=== PATIENT | male | born 1960 | race Caucasian/White ===

== ENCOUNTER 2018-12-28 08:50 | Emergency (ER) | payer OTHER ==
[~2018-12-28] VITALS: Ht 170.2 cm; Wt 102.1 kg
[~2018-12-28 08:50] MED LIST: CRESTOR5 MG PO; MULT1TAB52 PO; RANI-376 PO
[2018-12-28 09:20] VITALS: BP 160/91
[2018-12-28] MEDS ORDERED: IV NORMAL SALINE 1000ML BAG 1,000 ML IV SCH (09:31)
[2018-12-28 09:45] LABS: BILIRUBIN,URINE NEGATIVE (NEG); CLARITY,URINE CLEAR; COLOR,URINE YELLOW; NITRITE,URINE NEGATIVE (NEG); PH,URINE 6.5; PROTEIN,URINE NEGATIVE (NEG-TRACE)
[2018-12-28] MEDS ORDERED: KETOROLAC 30 MG/ML VIAL. IV ONE (09:45)
[2018-12-28 09:48] LABS: SQUAMOUS EPITHELIAL CELL,UR FEW /LPF
[2018-12-28 09:49] LABS: BACTERIA,URINE 0 /HPF (0-FEW); WBC,URINE OCC /HPF (0-4)
--- NOTE | 2018-12-28 09:52 | PHYS DOC ---
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 He states that on Thursday began experiencing some right-sided testicular pain, with radiation towards his right flank, which increased in intensity yesterday but has decreased in intensity today. But the pain is persisting so he presented to the emergency department. He denies any other associated symptoms, no nausea, vomiting, dysuria, hematuria, urinary frequency, or penile discharge. He has not had any abdominal pain. He has had 1 episode of prior kidney stones, and many many years ago, but states that this does not feel quite the same way. There are no alleviating or exacerbating factors to his symptoms. Review of Systems Review of Systems Constitutional: Denies fever or chills [] Eyes: Denies change in visual acuity, redness, or eye pain [] HENT: Denies nasal congestion or sore throat [] Respiratory: Denies cough or shortness of breath [] Cardiovascular: The patient denies any shortness of breath, chest pain, palpitations, or orthopnea [] GI: Denies abdominal pain, nausea, vomiting, bloody stools or diarrhea [] : Denies dysuria or hematuria [] Musculoskeletal: Denies back pain or joint pain, other than as noted in the history of present illness [] Integument: Denies rash or skin lesions [] Neurologic: Denies headache, focal weakness or sensory changes [] Endocrine: Denies polyuria or polydipsia [] All other systems were reviewed and found to be within normal limits, except as documented in this note. Current Medications Current Medications Current Medications Medications (Trade) Dose Ordered Sig/Quinton Start Time Stop Time Status Last Admin Dose Admin Ketorolac Tromethamine (Toradol 30mg Vial) 30 mg 1X ONCE 12/28/18 09:45 12/28/18 09:46 DC 12/28/18 10:07 30 MG Sodium Chloride 1,000 ml @ 1,000 mls/hr Q1H 12/28/18 09:31 12/28/18 10:30 DC 12/28/18 09:59 1,000 MLS/HR Allergies Allergies Allergies Coded Allergies Type Severity Reaction Last Updated Verified No Known Drug Allergies 10/30/17 No Physical Exam Physical Exam PHYSICAL EXAM: CONSTITUTIONAL: Well developed, well nourished HEAD: normocephalic, atraumatic EENT: PERRL, EOMI. Conjunctivae normal color, sclerae non-icteric; moist mucous membranes. NECK: Supple, non-tender; no meningismus. LUNGS: Lungs CTA, breathing even and unlabored. Normal air movement. HEART: Regular rate and rhythm, no murmur CHEST: No deformity; non-tender ABDOMEN: The abdomen is soft, there is mild tenderness to palpation to the right upper and mid abdomen, the remainder the abdomen is and non-tender, no masses or bruits. EXTREM: Normal ROM; no deformity, no calf tenderness. Normal pulses palpable in all extremities. There is no pedal edema. SKIN: No rash; no diaphoresis NEURO: Alert; normal speech and cognition; CN's grossly intact; strength grossly intact without focal deficit. BACK: There is mild right-sided CVA TTP. GENITOURINARY: Normal external genitalia. There is questionable mild tenderness to palpation of the right testicle, which feels normal in size and contour, there are no inguinal hernias, no other genital lesions or abnormalities are noted. Current Patient Data Vital Signs Vital Signs Date Time Temp Pulse Resp B/P (MAP) Pulse Ox O2 Delivery O2 Flow Rate FiO2 12/28/18 09:20 98.1 74 16 160/91 (114) 98 Room Air 98.1 Lab Values Laboratory Tests Test 12/28/18 09:20 12/28/18 09:57 Urine Collection Type Unknown Urine Color Yellow Urine Clarity Clear Urine pH 6.5 Urine Specific [place] 1.015 Urine Protein Negative mg/dL (NEG-TRACE) Urine Glucose (UA) Negative mg/dL (NEG) Urine Ketones (Stick) Negative mg/dL (NEG) Urine Blood Small (NEG) Urine Nitrite Negative (NEG) Urine Bilirubin Negative (NEG) Urine Urobilinogen Dipstick 1.0 mg/dL (0.2 mg/dL) Urine Leukocyte Esterase Negative (NEG) Urine RBC 11-20 /HPF (0-2) Urine WBC Occ /HPF (0-4) Urine Squamous Epithelial Cells Few /LPF Urine Bacteria 0 /HPF (0-FEW) Urine Mucus Mod /LPF White Blood Count 6.1 x10^3/uL (4.0-11.0) Red Blood Count 5.27 x10^6/uL (4.30-5.70) Hemoglobin 16.8 g/dL (13.0-17.5) Hematocrit 47.8 % (39.0-53.0) Mean Corpuscular Volume 91 fL (79-100) Mean Corpuscular Hemoglobin 32 pg (25-35) Mean Corpuscular Hemoglobin Concent 35 g/dL (31-37) Red Cell Distribution Width 13.6 % (11.5-14.5) Platelet Count 230 x10^3/uL (140-400) Neutrophils (%) (Auto) 60 % (31-73) Lymphocytes (%) (Auto) 29 % (24-48) Monocytes (%) (Auto) 7 % (0-9) Eosinophils (%) (Auto) 3 % (0-3) Basophils (%) (Auto) 1 % (0-3) Neutrophils # (Auto) 3.6 x10^3/uL (1.8-7.7) Lymphocytes # (Auto) 1.8 x10^3/uL (1.0-4.8) Monocytes # (Auto) 0.4 x10^3/uL (0.0-1.1) Eosinophils # (Auto) 0.2 x10^3/uL (0.0-0.7) Basophils # (Auto) 0.1 x10^3/uL (0.0-0.2) Sodium Level 143 mmol/L (136-145) Potassium Level 4.0 mmol/L (3.5-5.1) Chloride Level 105 mmol/L (98-107) Carbon Dioxide Level 30 mmol/L (21-32) Anion Gap 8 (6-14) Blood Urea Nitrogen 20 mg/dL (8-26) Creatinine 0.8 mg/dL (0.7-1.3) Estimated GFR (Cockcroft-Gault) 98.9 BUN/Creatinine Ratio 25 (6-20) H Glucose Level 115 mg/dL (70-99) H Calcium Level 9.2 mg/dL (8.5-10.1) Total Bilirubin 0.6 mg/dL (0.2-1.0) Aspartate Amino Transferase (AST) 17 U/L (15-37) Alanine Aminotransferase (ALT) 48 U/L (16-63) Alkaline Phosphatase 111 U/L (46-116) Total Protein 7.4 g/dL (6.4-8.2) Albumin 3.9 g/dL (3.4-5.0) Albumin/Globulin Ratio 1.1 (1.0-1.7) Lipase 76 U/L (73-393) Laboratory Tests 12/28/18 09:57 Laboratory Tests 12/28/18 09:57 EKG EKG [] Radiology/Procedures Radiology/Procedures [PROCEDURE: TESTICULAR/SCROTUM Examination: Ultrasound testis HISTORY: History of right testicular pain COMPARISON: None available FINDINGS: The right testis measures 5.1 x 3.1 x 2.5 cm. The left testis measures 5.1 x 2.3 x 2.7 cm. Prominent tortuous appearing vasculature identified on the right likely varicocele. Small bilateral hydroceles identified. IMPRESSION: 1. Right varicocele. 2. Mild bilateral hydrocele. ] PROCEDURE: CT ABDOMEN PELVIS WO CONTRAST Examination: CT of the abdomen pelvis without contrast HISTORY: History of right flank pain COMPARISON: 10/30/2017 TECHNIQUE: Axial CT images of the abdomen pelvis were performed without contrast. Coronal and sagittal reformats are performed Exposure: One or more of the following individualized dose reduction techniques were utilized for this examination: 1. Automated exposure control 2. Adjustment of the mA and/or kV according to patient size 3. Use of iterative reconstruction technique FINDINGS: Scattered calcified granulomas identified in the bibasilar lungs. No evidence of free air identified in the abdomen. The evaluation of the solid organs is limited due to lack of IV contrast. The evaluation of bowel is limited due to lack of oral contrast. The visualized noncontrasted liver spleen, adrenals grossly appears unremarkable. The gallbladder is mildly distended. The stomach is mildly distended. The visualized pancreas grossly appears unremarkable. The stomach is mildly distended. The small bowel is nondilated. Feces and gas noted in the colon. Punctate intrarenal collecting system calculi identified in the bilateral kidneys with the largest measuring 2 mm in the left. Mild right-sided hydronephrosis there is a questionable punctate 2 mm calculus identified in the distal right ureter, best visualized on series 2 image #162. Urinary bladder is mildly distended. There is a 2.7 x 2.7 cm round density measuring 29 Hounsfield units identified in the anterior aspect of the left kidney. There is a exophytic cystic structure identified in the left kidney measuring 1.7 cm similar to prior exam could be a left renal cyst or cystic lesion Moderate degenerative changes lumbar spine IMPRESSION: 1. Mild right-sided hydronephrosis and hydroureter identified with a questionable punctate 2 mm calculus in the distal right ureter. 2. A 2.7 x 2.7 cm round density measuring 29 Hounsfield units identified in the anterior aspect of the left kidney. There is a exophytic cystic structure identified in the left kidney measuring 1.7 cm similar to prior exam could be a left renal cyst or cystic lesion. Recommend follow-up nonemergent ultrasound. Course & Med Decision Making Course & Med Decision Making Pertinent Labs and Imaging studies reviewed. (See chart for details) [] Pt condition remains stable. Pain better at this time. Discussed test results, including incidental L renal findings, need for close urology f/u, straining urine, and return precautions. Dragon Disclaimer Dragon Disclaimer This electronic medical record was generated, in whole or in part, using a voice recognition dictation system. Departure Departure Impression: Primary Impression: Kidney stone Disposition: HOME, SELF-CARE Condition: STABLE Referrals: FLAQUITO PARSON DO (PCP) AARON PALMER MD Patient Instructions: Kidney Stones Additional Instructions: Ibuprofen 400-600 mg every 6 hours as needed for pain. Use the prescribed pain medication as needed for pain not controlled by ibuprofen.The prescribed medication may cause drowsiness. Use caution while taking. Strain your urine. If you find a kidney stone, bring it to your urology follow- up appointment, as this may help the urologist to determine what is causing the stone what you might be able to do to prevent this from happening in the future. The CT scan done today did show a lesion on your left kidney, which will warrant further evaluation, with an outpatient ultrasound, to ensure that this is not a serious or cancerous etiology. Urology follow-up will help arrange outpatient imaging. Scripts Tamsulosin Hcl (FLOMAX) 0.4 Mg Cap.er.24h 1 CAP PO DAILY, #30 CAP 0 Refills Prov: LAURA ANDERSON MD 12/28/18 LAURA ANDERSON MD Dec 28, 2018 09:52
--- NOTE | 2018-12-28 10:16 | RAD ---
Examination: Ultrasound testis HISTORY: History of right testicular pain COMPARISON: None available FINDINGS: The right testis measures 5.1 x 3.1 x 2.5 cm. The left testis measures 5.1 x 2.3 x 2.7 cm. Prominent tortuous appearing vasculature identified on the right likely varicocele. Small bilateral hydroceles identified. IMPRESSION: 1. Right varicocele. 2. Mild bilateral hydrocele. Electronically signed by: Trevin Granado MD (12/28/2018 10:13 AM) [id number]
[2018-12-28 10:19] LABS: CALCIUM 9.2 mg/dL (8.5-10.1); CREATININE 0.8 mg/dL (0.7-1.3); GFR 98.9
[2018-12-28 10:23] LABS: ALBUMIN 3.9 g/dL (3.4-5.0); ALBUMIN/GLOBULIN RATIO 1.1 (1.0-1.7); TOTAL BILIRUBIN 0.6 mg/dL (0.2-1.0); TOTAL PROTEIN 7.4 g/dL (6.4-8.2)
[2018-12-28 10:26] LABS: BASO # 0.1 x10^3/uL (0.0-0.2); BASO % 1 % (0-3); EOS # 0.2 x10^3/uL (0.0-0.7); EOS % 3 % (0-3); HEMATOCRIT 47.8 % (39.0-53.0); HEMOGLOBIN 16.8 g/dL (13.0-17.5); LYMPH # 1.8 x10^3/uL (1.0-4.8); LYMPH % 29 % (24-48); MEAN CORPUSCULAR HEMOGLOBIN 32 pg (25-35); MEAN CORPUSCULAR HGB CONC 35 g/dL (31-37); MEAN CORPUSCULAR VOLUME 91 fL (79-100); MONO # 0.4 x10^3/uL (0.0-1.1); MONO % 7 % (0-9); NEUT # 3.6 x10^3/uL (1.8-7.7); NEUT % 60 % (31-73); PLATELET COUNT 230 x10^3/uL (140-400); RED BLOOD COUNT 5.27 x10^6/uL (4.30-5.70); RED CELL DISTRIBUTION WIDTH 13.6 % (11.5-14.5); WHITE BLOOD COUNT 6.1 x10^3/uL (4.0-11.0)
--- NOTE | 2018-12-28 10:31 | RAD ---
Examination: CT of the abdomen pelvis without contrast HISTORY: History of right flank pain COMPARISON: 10/30/2017 TECHNIQUE: Axial CT images of the abdomen pelvis were performed without contrast. Coronal and sagittal reformats are performed Exposure: One or more of the following individualized dose reduction techniques were utilized for this examination: 1. Automated exposure control 2. Adjustment of the mA and/or kV according to patient size 3. Use of iterative reconstruction technique FINDINGS: Scattered calcified granulomas identified in the bibasilar lungs. No evidence of free air identified in the abdomen. The evaluation of the solid organs is limited due to lack of IV contrast. The evaluation of bowel is limited due to lack of oral contrast. The visualized noncontrasted liver spleen, adrenals grossly appears unremarkable. The gallbladder is mildly distended. The stomach is mildly distended. The visualized pancreas grossly appears unremarkable. The stomach is mildly distended. The small bowel is nondilated. Feces and gas noted in the colon. Punctate intrarenal collecting system calculi identified in the bilateral kidneys with the largest measuring 2 mm in the left. Mild right-sided hydronephrosis there is a questionable punctate 2 mm calculus identified in the distal right ureter, best visualized on series 2 image #162. Urinary bladder is mildly distended. There is a 2.7 x 2.7 cm round density measuring 29 Hounsfield units identified in the anterior aspect of the left kidney. There is a exophytic cystic structure identified in the left kidney measuring 1.7 cm similar to prior exam could be a left renal cyst or cystic lesion Moderate degenerative changes lumbar spine IMPRESSION: 1. Mild right-sided hydronephrosis and hydroureter identified with a questionable punctate 2 mm calculus in the distal right ureter. 2. A 2.7 x 2.7 cm round density measuring 29 Hounsfield units identified in the anterior aspect of the left kidney. There is a exophytic cystic structure identified in the left kidney measuring 1.7 cm similar to prior exam could be a left renal cyst or cystic lesion. Recommend follow-up nonemergent ultrasound. Electronically signed by: Trevin Granado MD (12/28/2018 10:28 AM) [id number]
[2018-12-28] MEDS ORDERED: TAMS0.4C97 PO (11:12)
== END 2018-12-28 11:26 | disposition home or self-care (01) ==
LOC: ER 08:50
DX: N13.2 Hydronephrosis with renal and ureteral calculous obstruction (principal); N50.811 Right testicular pain; K21.9 Gastro-esophageal reflux disease without esophagitis; E78.00 Pure hypercholesterolemia, unspecified
CPT/HCPCS: 36415; 74176; 76870; 80053; 81001; 83690; 85025; 96374; 99285; J1885; J7030; 96375

== ENCOUNTER → 2019-08-08 | Outpatient (CLI) | payer OTHER ==
[~2019-08-08] MED LIST changes: +IOHEXOL 240 MG/ML 50ML VIAL. PO ONE; +IOHEXOL 300 MG/ML 100ML VIAL. IV ONE; +TAMS0.4C97 PO
[2019-08-08 09:46] LABS: CREATININE 0.9 mg/dL (0.7-1.3); GFR 86.4
--- NOTE | 2019-08-08 10:46 | RAD ---
Examination: CT CHEST ABD PELVIS W/CONTRAST History: Renal cell carcinoma of the left kidney Comparison/Correlation: 12/28/2018 CT abdomen and pelvis without contrast Findings: Axial images of the chest, abdomen, and pelvis were obtained following IV contrast. Sagittal and coronal reformatted images were provided. Calcified mediastinal and bilateral hilar lymph nodes are present. No suspicious enlarged thoracic nodes. Azygos lobe is present. Calcified granulomas are present involving the lung sheth. No infiltrate or pleural effusion. No pneumothorax. Tracheobronchial tree is unremarkable. Gallbladder fossa is unremarkable. Liver, spleen, and adrenal glands are normal. Small sliding hiatal hernia appears to be present. Partial nephrectomy at the anterior aspect of the left renal interpolar region is noted. No recurrence of any mass lesion at this level. Nonobstructive left renal interpolar calyceal calculus is present. Punctate nonobstructive right renal superior pole calyceal calculus is present. Left renal lower pole cyst is present and stable upon comparison with the previous exam and no additional, dedicated follow-up is required for this finding. Diverticulosis of the colon is present. Appendix is normal. No large abdominal or pelvic lymph nodes. Concentric disc bulge at L3-4 and L4-5 is noted. Impression: Partial anterior left renal interpolar region nephrectomy. No recurrence. No suspicious findings to suggest metastases, infiltrates, or lymphadenopathy in the interval. Small sliding hiatal hernia. Diverticulosis. Nonobstructive renal calculi. PQRS Compliance Statement: One or more of the following individualized dose reduction techniques were utilized for this examination: 1. Automated exposure control 2. Adjustment of the mA and/or kV according to patient size 3. Use of iterative reconstruction technique Electronically signed by: Flakito Grey MD (08/08/2019 10:43 AM) [id number]
== END | disposition home or self-care (01) ==
LOC: CT 07:56
PROVIDERS: ATTEND Internal Medicine Hematology & Oncology
DX: C64.2 Malignant neoplasm of left kidney, except renal pelvis (principal); N20.0 Calculus of kidney; K44.9 Diaphragmatic hernia without obstruction or gangrene; K57.30 Diverticulosis of large intestine without perforation or abscess without bleeding
CPT/HCPCS: 36415; 71260; 74177; 82565; Q9966; Q9967

== ENCOUNTER 2019-11-15 12:57 | Inpatient (IN) | payer OTHER ==
[~2019-11-15] VITALS: Ht 170.2 cm; Wt 105.6 kg
[~2019-11-15 12:57] MED LIST changes: -IOHEXOL 240 MG/ML 50ML VIAL. PO ONE; -IOHEXOL 300 MG/ML 100ML VIAL. IV ONE; +MULT-445 PO; -MULT1TAB52 PO
--- NOTE | 2019-11-15 14:04 | PHYS DOC ---
Past Medical History Past Medical History: GERD, High Cholesterol, Kidney Stone, Other Additional Past Medical Histor: partial left nephrectomy 2 to kidney cancer Past Surgical History: Other Additional Past Surgical Histo: HERNIA,BASAL CA REMOVED FROM L CHEEK; umbilical hernia Smoking Status: Current Every Day Smoker Additional Information: 05-18 ppd Alcohol Use: Occasionally Drug Use: None General Adult EDM: Chief Complaint: BACK PAIN OR INJURY HPI: HPI: Patient is a 59 year old male who presents with left lumbar back pain. Patient reports that on Thursday he was cleaning up tree limbs when he twisted wrong and felt a pain in his left lower back. Patient reports that the pain has worsened since Thursday. He describes the pain as a burning pain and rates it 9 out of 10. He reports that the pain does radiate into his left lower abdomen. He reports that movement makes the pain worse. He has been taking hydrocodone 5/325 tablets at home and reports that that has not improved his symptoms. Patient reports that when he stands completely straight he does start to experience numbness and tingling in his bilateral lower extremities. Patient reports that he does have a history of chronic back pain from the [employer]. He also has a partial left nephrectomy. Patient denies loss of bowel or bladder, saddle anesthesias, abdominal pain, nausea, vomiting, diarrhea, blood in urine, blood in stool, dysuria. Patient is ambulatory with a steady gait Review of Systems: Review of Systems: Constitutional: Denies fever or chills. [] Eyes: Denies change in visual acuity. [] HENT: Denies nasal congestion or sore throat. [] Respiratory: Denies cough or shortness of breath. [] Cardiovascular: Denies chest pain or edema. [] GI: Denies abdominal pain, nausea, vomiting, bloody stools or diarrhea. [] : Denies dysuria, hematuria. [] Musculoskeletal: See HPI [] Integument: Denies rash. [] Neurologic: Denies headache, focal weakness, see HPI. [] [] Lymphatic: Denies swollen glands. [] Psychiatric: Denies depression or anxiety. [] Heart Score: Risk Factors: Risk Factors: DM, Current or recent (<one month) smoker, HTN, HLP, family history of CAD, obesity. Risk Scores: Score 0 - 3: 2.5% MACE over next 6 weeks - Discharge Home Score 4 - 6: 20.3% MACE over next 6 weeks - Admit for Clinical Observation Score 7 - 10: 72.7% MACE over next 6 weeks - Early Invasive Strategies Allergies: Allergies: Allergies Coded Allergies Type Severity Reaction Last Updated Verified No Known Drug Allergies 10/30/17 No Physical Exam: PE: Constitutional: Well developed, well nourished, no acute distress, non-toxic appearance. [] HENT: Normocephalic, atraumatic, bilateral external ears normal, nose normal. [] Eyes: PERRLA, EOMI, conjunctiva normal, no discharge. [] Neck: Normal range of motion, no tenderness, no stridor. [] Cardiovascular:Heart rate regular rhythm, no murmur [] Lungs & Thorax: Bilateral breath sounds clear to auscultation [] Abdomen: Bowel sounds normal, soft, no tenderness, no masses, no pulsatile masses. [] Skin: Warm, dry, no erythema, no rash. [] Back: L CVA tenderness, left paraspinal tenderness with palpation, no bony spinal tenderness with palpation. [] Extremities: No tenderness, no cyanosis, no clubbing, ROM intact, no edema; strong pulses noted to bilateral lower extremities. [] Neurologic: Alert and oriented X 3, normal motor function, normal sensory function, no focal deficits noted. [] Psychologic: Affect normal, judgement normal, mood normal. [] Current Patient Data: Vital Signs: Vital Signs Date Time Temp Pulse Resp B/P (MAP) Pulse Ox O2 Delivery O2 Flow Rate FiO2 11/15/19 13:13 98.6 88 20 166/86 (112) 96 Room Air 98.6 EKG: EKG: [] Radiology/Procedures: Radiology/Procedures: PROCEDURE: CT LUMBAR SPINE WO CONTRAST CT LUMBAR SPINE WO CONTRAST Date: 11/15/2019 1:47 PM Indication: Reason: low back pain after feeling pop while picking up tree limgs / Spl. Instructions: / History: Comparison: CT abdomen pelvis 08/08/2019. Technique: Helical CT images of the lumbar spine were obtained without contrast. Coronal and sagittal reformatted images were also performed. One or more of the following dose reduction techniques were utilized: Automated exposure control (AEC), Adjustment of mA and/or kV according to patient size, Use of iterative reconstruction technique such as ASiR, CT scan done according to ALARA and image gently/image wisely. Findings: The lumbar spine is normally aligned. No acute fracture. Vertebral body heights are maintained without compression deformity. No aggressive lytic or blastic osseous lesion. Mild to moderate multilevel degenerative disc space height loss. Multilevel mild spinal canal stenosis secondary to multilevel disc bulging and facet arthrosis. Multilevel mild and moderate neuroforaminal narrowing. Multilevel mild and moderate facet arthrosis. No soft tissue abnormality within the visualized abdomen or pelvis. Moderate aortoiliac atherosclerotic disease. IMPRESSION: No acute osseous abnormality of the lumbar spine. [] PROCEDURE: CT ABDOMEN PELVIS WO CONTRAST Examination: CT of the abdomen pelvis without contrast HISTORY: History of left flank pain, hematuria COMPARISON: 08/08/2019 TECHNIQUE: Axial CT images of the abdomen pelvis were performed without contrast. Coronal and sagittal reformats are performed Exposure: One or more of the following individualized dose reduction techniques were utilized for this examination: 1. Automated exposure control 2. Adjustment of the mA and/or kV according to patient size 3. Use of iterative reconstruction technique FINDINGS: The bibasilar lungs demonstrate few scattered calcified granulomas. No evidence of free air identified in the abdomen. The visualized noncontrasted liver, spleen, adrenals grossly appears unremarkable. Gallbladder is mildly distended. The stomach is mildly distended. The visualized pancreas grossly appears unremarkable. The small bowel is nondilated. Feces and gas noted in the colon. The appendix is normal. Punctate 3 mm calculi identified in the bilateral kidney. Prior changes of partial nephrectomy anterior left kidney. There is a cystic structure identified in the inferior aspect of the left kidney measuring 1.3 cm similar to prior exam. Mild fat stranding identified about the left kidney and left ureter. No evidence of hydronephrosis. Mild degenerative changes thoracolumbar spine. IMPRESSION: 1. Mild fat stranding identified about the left kidney and the left ureter could be secondary to pyelonephritis. Correlate with urine analysis. Consider CT urogram for better evaluation. 2. Punctate bilateral intrarenal collecting system calculi. Course & Med Decision Making: Course & Med Decision Making Pertinent Labs and Imaging studies reviewed. (See chart for details) Pt is a 59-year-old male who presented to the emergency department with complaints of left low back pain and left flank pain. CT lumbar spine was negative for any acute findings. The patient was given IM Norflex and p.o. Decadron with no relief of his pain. UA was conducted revealed a large amount of blood with 1-4 white blood cells and few bacteria. CT abdomen pelvis without contrast was concerning for pyelonephritis. CBC and BMP were unremarkable. The patient was given 4 mg of morphine and 4 mg of Zofran for comfort. He also was given 1 g of IV Rocephin. Patient continued to complain of pain and appearing comfortable. [id number]-spoke with Dr. Zhang who is the admitting physician, and care was assumed following discussion of patient. Will admit patient to med/surg for pyelonephritis and the left low back pain Patient's vital signs stable. Patient remains afebrile, appears nontoxic, respirations even and unlabored. Patient's case and plan of care also discussed with Dr. Xiang Galan Disclaimer: Adama Disclaimer: This electronic medical record was generated, in whole or in part, using a voice recognition dictation system. 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
--- NOTE | 2019-11-15 14:08 | RAD ---
CT LUMBAR SPINE WO CONTRAST Date: 11/15/2019 1:47 PM Indication: Reason: low back pain after feeling pop while picking up tree limgs / Spl. Instructions: / History: Comparison: CT abdomen pelvis 08/08/2019. Technique: Helical CT images of the lumbar spine were obtained without contrast. Coronal and sagittal reformatted images were also performed. One or more of the following dose reduction techniques were utilized: Automated exposure control (AEC), Adjustment of mA and/or kV according to patient size, Use of iterative reconstruction technique such as ASiR, CT scan done according to ALARA and image gently/image wisely. Findings: The lumbar spine is normally aligned. No acute fracture. Vertebral body heights are maintained without compression deformity. No aggressive lytic or blastic osseous lesion. Mild to moderate multilevel degenerative disc space height loss. Multilevel mild spinal canal stenosis secondary to multilevel disc bulging and facet arthrosis. Multilevel mild and moderate neuroforaminal narrowing. Multilevel mild and moderate facet arthrosis. No soft tissue abnormality within the visualized abdomen or pelvis. Moderate aortoiliac atherosclerotic disease. IMPRESSION: No acute osseous abnormality of the lumbar spine. Electronically signed by: Ric Rodríguez MD (11/15/2019 2:05 PM) [id number]
[2019-11-15] MEDS ORDERED: DEXAMETHASONE SOD PHOS 20 MG/5 ML VIAL. PO ONE (14:30)
[2019-11-15] MEDS ORDERED: ORPHENADRINE CITRATE 60 MG/2 ML VIAL. IM ONE (14:30)
[2019-11-15] MEDS ORDERED: DEXAMETHASONE 4 MG TABLET PO ONE (15:00)
[2019-11-15 15:04] LABS: BILIRUBIN,URINE NEGATIVE (NEG); CLARITY,URINE CLEAR; COLOR,URINE YELLOW; NITRITE,URINE NEGATIVE (NEG); PROTEIN,URINE NEGATIVE (NEG-TRACE); UROBILINOGEN,URINE 0.2 mg/dL (0.2 mg/dL)
[2019-11-15 15:10] LABS: BACTERIA,URINE FEW /HPF (0-FEW); SQUAMOUS EPITHELIAL CELL,UR FEW /LPF
[2019-11-15] MEDS ORDERED: ONDANSETRON PF 4 MG/2 ML VIAL. IV ONE (15:30)
[2019-11-15] MEDS ORDERED: MORPHINE SULFATE 4 MG/ML VIAL. IV ONE (15:30)
--- NOTE | 2019-11-15 15:54 | RAD ---
Examination: CT of the abdomen pelvis without contrast HISTORY: History of left flank pain, hematuria COMPARISON: 08/08/2019 TECHNIQUE: Axial CT images of the abdomen pelvis were performed without contrast. Coronal and sagittal reformats are performed Exposure: One or more of the following individualized dose reduction techniques were utilized for this examination: 1. Automated exposure control 2. Adjustment of the mA and/or kV according to patient size 3. Use of iterative reconstruction technique FINDINGS: The bibasilar lungs demonstrate few scattered calcified granulomas. No evidence of free air identified in the abdomen. The visualized noncontrasted liver, spleen, adrenals grossly appears unremarkable. Gallbladder is mildly distended. The stomach is mildly distended. The visualized pancreas grossly appears unremarkable. The small bowel is nondilated. Feces and gas noted in the colon. The appendix is normal. Punctate 3 mm calculi identified in the bilateral kidney. Prior changes of partial nephrectomy anterior left kidney. There is a cystic structure identified in the inferior aspect of the left kidney measuring 1.3 cm similar to prior exam. Mild fat stranding identified about the left kidney and left ureter. No evidence of hydronephrosis. Mild degenerative changes thoracolumbar spine. IMPRESSION: 1. Mild fat stranding identified about the left kidney and the left ureter could be secondary to pyelonephritis. Correlate with urine analysis. Consider CT urogram for better evaluation. 2. Punctate bilateral intrarenal collecting system calculi. Electronically signed by: Trevin Granado MD (11/15/2019 3:51 PM) [id number]
[2019-11-15 16:14] LABS: BASO # 0.1 x10^3/uL (0.0-0.2); BASO % 1 % (0-3); EOS # 0.2 x10^3/uL (0.0-0.7); EOS % 2 % (0-3); HEMATOCRIT 45.7 % (39.0-53.0); HEMOGLOBIN 16.6 g/dL (13.0-17.5); LYMPH # 2.4 x10^3/uL (1.0-4.8); LYMPH % 30 % (24-48); MEAN CORPUSCULAR HEMOGLOBIN 33 pg (25-35); MEAN CORPUSCULAR HGB CONC 36 g/dL (31-37); MEAN CORPUSCULAR VOLUME 89 fL (79-100); MONO # 0.6 x10^3/uL (0.0-1.1); MONO % 7 % (0-9); NEUT # 4.9 x10^3/uL (1.8-7.7); NEUT % 60 % (31-73); PLATELET COUNT 223 x10^3/uL (140-400); RED BLOOD COUNT 5.12 x10^6/uL (4.30-5.70); RED CELL DISTRIBUTION WIDTH 13.6 % (11.5-14.5)
[2019-11-15 16:21] LABS: CALCIUM 9.2 mg/dL (8.5-10.1); CREATININE 0.9 mg/dL (0.7-1.3); GFR 86.1; POTASSIUM 3.9 mmol/L (3.5-5.1)
[2019-11-15] MEDS ORDERED: CIPR500T PO (16:50)
[2019-11-15] MEDS ORDERED: cefTRIAXone IV Push 1 GM VIAL. IVP ONE (17:15)
[2019-11-15] MEDS ORDERED: ONDANSETRON PF 4 MG/2 ML VIAL. IV PRN (17:15)
[2019-11-15] MEDS ORDERED: fentaNYL PF VIAL 100 MCG/2 ML VIAL ONE (17:18)
[2019-11-15] MEDS: fentaNYL PF VIAL 100 MCG/2 ML VIAL IV PRN ×3 (17:19→21:51)
[2019-11-15 19:58] VITALS: BP 145/78
--- NOTE | 2019-11-15 20:35 | HP ---
ADMIT DATE: 11/15/2019 CHIEF COMPLAINT: Back pain. HISTORY OF PRESENT ILLNESS: The patient is a pleasant 59-year-old male who has a long history of back pain. Basically, he states he has had 3 previous surgeries this last week and he was cleaning up some tree limbs, twisted his back and has intractable back pain. While in the ER, we also checked some lab. He has a UTI and the imaging is also showing pyelonephritis. I have discussed the case with the ER physician. We are going to admit the patient, give him pain meds, fluids and antibiotics. PAST MEDICAL HISTORY: Chronic lumbar radiculopathy and I think he has had 3 surgeries, GERD, hyperlipidemia, kidney stones, partial left nephrectomy secondary to kidney cancer, skin cancer, umbilical hernia repair, tobacco abuse. ALLERGIES: None. FAMILY HISTORY: Hypertension. SOCIAL HISTORY: He smokes. No drinking or drugs. MEDICATIONS: Reviewed, please refer to the MRAD. REVIEW OF SYSTEMS: GENERAL: No history of weight change, weakness or fevers. SKIN: No bruising, hair changes or rashes. EYES: No blurred, double or loss of vision. NOSE AND THROAT: No history of nosebleeds, hoarseness or sore throat. HEART: No history of palpitations, chest pain or shortness of breath on exertion. LUNGS: Denies cough, hemoptysis, wheezing or shortness of breath. GASTROINTESTINAL: Denies changes in appetite, nausea, vomiting, diarrhea or constipation. GENITOURINARY: No history of frequency, urgency, hesitancy or nocturia. NEUROLOGIC: Denies history of numbness, tingling, tremor or weakness. PSYCHIATRIC: No history of panic, anxiety or depression. ENDOCRINE: No history of heat or cold intolerance, polyuria or polydipsia. EXTREMITIES: He complains of back pain. PHYSICAL EXAMINATION: VITALS: Within normal limits and are stable. GENERAL: No apparent distress. Alert and oriented. HEENT: Normal cephalic atraumatic, external auditory canals are patent EYES: Extraocular muscles are intact, pupils are equally round and reactive to light and accommodation MUSCULOSKELETAL: He has back pain to palpation. ENDOCRINE: No thyromegaly was palpated LYMPHATICS: No cervical chain or axillary nodes were noted HEMATOPOIETIC: No bruising NECK: Supple, no JVD, no thyromegaly was noted. LUNGS: Clear to auscultation in all lung sheth without rhonchi or wheezing. HEART: RRR, S1, S2 present. Peripheral pulses intact, no obvious murmurs were noted. ABDOMEN: Distended. EXTREMITIES: Without any cyanosis, clubbing, or edema. Pedal pulses intact, Homans sign is negative. NEUROLOGIC: Normal speech, normal tone. A & O x3, moves all extremities, no obvious focal deficits. PSYCHIATRIC: Normal affect, normal mood. Stable. SKIN: No ulcerations or rashes, good skin turgor, no jaundice. VASCULAR: Good capillary refill, neurovascular bundle appears to be intact. LABORATORY DATA: Urinalysis shows 1-4 white cells. IMAGING: CT of the abdomen shows pyelonephritis. ASSESSMENT AND PLAN: Pyelonephritis, intractable back pain. The patient will be admitted. We will give IV fluids, IV antibiotics, p.r.n. pain meds, home meds, DVT prophylaxis. Full code. PROGNOSIS: Guarded. LUCIA GUAJARDO DO DR: ELIZA/sarah JOB#: [id number] / [id number]
[2019-11-15 23:00] VITALS: BP 138/84
[2019-11-15] MEDS ORDERED: FAMO-63 PO (23:38)
[2019-11-15] MEDS ORDERED: ASPI325T8 PO (23:42)
[2019-11-15] MEDS ORDERED: KRIL1CAP23 PO (23:42)
[2019-11-15] MEDS ORDERED: VITA1TAB19 PO (23:42)
[2019-11-15] MEDS ORDERED: GINS100C3 PO (23:42)
[2019-11-15] MEDS ORDERED: GARL100T PO (23:42)
[2019-11-15] MEDS ORDERED: GINK120T3 PO (23:42)
[2019-11-16] MEDS: fentaNYL PF VIAL 100 MCG/2 ML VIAL IV PRN ×4 (00:24→11:55)
[2019-11-16 03:00] VITALS: BP 133/91
[2019-11-16 07:15] VITALS: BP 146/98
[2019-11-16 10:52] VITALS: BP 138/79
--- NOTE | 2019-11-16 12:47 | DS ---
DATE OF DISCHARGE: 11/16/2019 ADMISSION DIAGNOSES: Pyelonephritis and chronic back pain. DISCHARGE DIAGNOSIS: Resolving pyelonephritis. HOSPITAL COURSE: The patient is a pleasant 59-year-old male who presented with pyelonephritis. He also seems to have a little bit of drug seeking issues. He keeps talking about getting IV pain meds. Last night, we gave him IV fluids and IV antibiotics. Today, we are going to give another dose of Rocephin. This morning, I saw him and examined him. Heart tones are normal. Lungs are clear. We plan to discharge on Augmentin and Percocet. DISPOSITION: Home. ACTIVITY: As tolerated. DIET: Low sodium. MEDICATIONS: Please see the MRAD. TOTAL TIME: 31 minutes. LUCIA GUAJARDO DO DR: ELIZA/sarah JOB#: [id number] / [id number]
--- NOTE | 2019-11-16 13:34 | NUR ---
ready to go home. states that it is more back pain than flank pain. encouraged to go pcp with 1 month for follow up . encouraged to drink fluids. start the antibiotic as soon as possible and to take both doses today. and Jorge Alberto verbalized understanding. dismissed to home.
--- NOTE | 2019-11-16 13:50 | NUR ---
SW following. Discussed with RN, pt discharged home with self care.
[2019-11-16] MEDS ORDERED: cefTRIAXone IV Push 1 GM VIAL. IVP SCH (18:00)
[2019-11-16] MEDS ORDERED: LACTOBACILLUS RHAMNOSUS GG 1 CAPSULE. PO SCH (21:00)
== END 2019-11-16 13:00 | disposition home or self-care (01) | DRG 690 ==
LOC: ER 12:57 → 4 NORTH 17:11
PROVIDERS: ADMIT Internal Medicine; ATTEND Internal Medicine
DX: N12 Tubulo-interstitial nephritis, not specified as acute or chronic (principal); E78.00 Pure hypercholesterolemia, unspecified; F17.200 Nicotine dependence, unspecified, uncomplicated; G89.29 Other chronic pain; K21.9 Gastro-esophageal reflux disease without esophagitis; Z76.5 Malingerer [conscious simulation]; Z82.49 Family history of ischemic heart disease and other diseases of the circulatory system; Z85.528 Personal history of other malignant neoplasm of kidney; Z87.442 Personal history of urinary calculi; Z90.5 Acquired absence of kidney
CPT/HCPCS: 36415; 72131; 74176; 80048; 81001; 85025; 96372; 96374; 96375; 99285; J0696; J2270; J2360; J2405; J3010; G0378

== ENCOUNTER 2020-02-12 16:38 | Emergency (ER) | payer OTHER ==
[~2020-02-12] VITALS: Ht 170.2 cm; Wt 90.0 kg
[~2020-02-12 16:38] MED LIST changes: +ASPI325T8 PO; +CIPR500T PO; +FAMO-63 PO; +GARL100T PO; +GINK120T3 PO; +GINS100C3 PO; +KRIL1CAP23 PO; +VITA1TAB19 PO
[2020-02-12] MEDS ORDERED: KETOROLAC 15 MG/ML VIAL. IVP ONE (16:45)
[2020-02-12] MEDS ORDERED: KETAMINE HCL IN NACL, ISO-OSM 50 MG/5 ML SYRINGE IV ONE (16:45)
--- NOTE | 2020-02-12 16:48 | PHYS DOC ---
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 Patient is a 59-year-old male with PMH chronic back pain who presents with a chief complaint of acute on chronic back pain. Patient states he began developing pain yesterday evening. He states he spent all day they are using a dethatcher which caused constant vibration to his lower back and arms. He states that the pain has progressively worsened. He states he is tried 1 pain pill from his at home with no relief. He also tried a muscle relaxant with minimal relief. He states he has had MRIs of his back within the last month that showed disc herniation and [id number] pathology. He states he has no plans for surgical intervention. Denies any falls or trauma. States the pain is in his right lower back and radiates to his right groin. He states this is typical of when he has back pain flares. States it is difficult for him to ambulate at this time due to the pain. Patient denies any urinary retention, stool incontinence, saddle anesthesia, history of IV drug use, or history of cancer. (FRANCESCA HALL ) Review of Systems: Review of Systems: Constitutional: Denies fever or chills. [] Eyes: Denies change in visual acuity. [] HENT: Denies nasal congestion or sore throat. [] Respiratory: Denies cough or shortness of breath. [] Cardiovascular: Denies chest pain or edema. [] GI: Denies abdominal pain, nausea, vomiting, bloody stools or diarrhea. [] : Denies dysuria. [] Musculoskeletal: Positive for back pain Integument: Denies rash. [] Neurologic: Denies headache, focal weakness or sensory changes. [] Endocrine: Denies polyuria or polydipsia. [] Lymphatic: Denies swollen glands. [] Psychiatric: Denies depression or anxiety. [] (FRANCESCA HALL DO) Heart Score: Risk Factors: Risk Factors: DM, Current or recent (<one month) smoker, HTN, HLP, family history of CAD, obesity. Risk Scores: Score 0 - 3: 2.5% MACE over next 6 weeks - Discharge Home Score 4 - 6: 20.3% MACE over next 6 weeks - Admit for Clinical Observation Score 7 - 10: 72.7% MACE over next 6 weeks - Early Invasive Strategies (FRANCESCA HALL DO) Current Medications: Current Medications Medications (Trade) Dose Ordered Sig/Quinton Start Time Stop Time Status Last Admin Dose Admin Ketamine HCl (Ketamine) 100 mg 1X ONCE 02/12/20 16:45 02/12/20 16:46 UNV Ketorolac Tromethamine (Toradol 15mg Vial) 15 mg 1X ONCE 02/12/20 16:45 02/12/20 16:46 Lidocaine (Lidoderm) 1 patch DAILY 02/13/20 09:00 (FRANCESCA HALL DO) Allergies: Allergies: Allergies Coded Allergies Type Severity Reaction Last Updated Verified No Known Drug Allergies 10/30/17 No (FRANCESCA HALL DO) Physical Exam: PE: Constitutional: Well developed, well nourished, no acute distress, non-toxic appearance. [] HENT: Normocephalic, atraumatic, bilateral external ears normal, oropharynx moist, no oral exudates, nose normal. [] Eyes: PERRLA, EOMI, conjunctiva normal, no discharge. [] Neck: Normal range of motion, no tenderness, supple, no stridor. [] Cardiovascular:Heart rate regular rhythm, no murmur [] Lungs & Thorax: Bilateral breath sounds clear to auscultation [] Abdomen: soft, no tenderness, no masses, no pulsatile masses. [] Skin: Warm, dry, no erythema, no rash. [] Back: + 5/5 motor strength in dorsiflexion and plantarflexion of the great toes bilaterally. Sensation intact between the webbing of the first and second toes bilaterally. Hypertonic right paraspinal lumbar musculature. No midline tenderness step-offs or deformities noted. Extremities: No tenderness, no cyanosis, no clubbing, ROM intact, no edema. [] Neurologic: Alert and oriented X 3, normal motor function, normal sensory function, no focal deficits noted. [] Psychologic: Affect normal, judgement normal, mood normal. [] (FRANCESCA HALL DO) Current Patient Data: Labs: Laboratory Tests Test 02/12/20 17:00 White Blood Count 9.7 x10^3/uL Red Blood Count 4.96 x10^6/uL Hemoglobin 15.7 g/dL Hematocrit 44.5 % Mean Corpuscular Volume 90 fL Mean Corpuscular Hemoglobin 32 pg Mean Corpuscular Hemoglobin Concent 35 g/dL Red Cell Distribution Width 13.6 % Platelet Count 181 x10^3/uL Neutrophils (%) (Auto) 74 % Lymphocytes (%) (Auto) 15 % Monocytes (%) (Auto) 5 % Eosinophils (%) (Auto) 6 % Basophils (%) (Auto) 1 % Neutrophils # (Auto) 7.2 x10^3/uL Lymphocytes # (Auto) 1.5 x10^3/uL Monocytes # (Auto) 0.5 x10^3/uL Eosinophils # (Auto) 0.5 x10^3/uL Basophils # (Auto) 0.1 x10^3/uL Sodium Level 135 mmol/L Potassium Level 3.4 mmol/L Chloride Level 100 mmol/L Carbon Dioxide Level 23 mmol/L Anion Gap 12 Blood Urea Nitrogen 17 mg/dL Creatinine 0.7 mg/dL Estimated GFR (Cockcroft-Gault) 115.0 Glucose Level 115 mg/dL Calcium Level 8.6 mg/dL Current Medications Medications (Trade) Dose Ordered Sig/Quinton Route PRN Reason Start Time Stop Time Status Last Admin Dose Admin Ketamine HCl (Ketamine) 100 mg 1X ONCE IV 02/12/20 16:45 02/12/20 16:47 DC Lidocaine (Lidoderm) 1 patch DAILY TD 02/12/20 17:30 02/12/20 17:32 Ketorolac Tromethamine (Toradol 15mg Vial) 15 mg 1X ONCE IVP 02/12/20 16:45 02/12/20 16:46 DC 02/12/20 17:32 Ketamine HCl 18 mg/Sodium Chloride 250.36 ml @ 1,502.16 mls/hr 1X ONCE IV 02/12/20 17:30 02/12/20 17:39 DC 02/12/20 17:30 Vital Signs: Vital Signs Date Time Temp Pulse Resp B/P (MAP) Pulse Ox O2 Delivery O2 Flow Rate FiO2 02/12/20 16:44 98.5 86 16 199/92 (127) 97 Room Air 98.5 (FRANCESCA HALL DO) EKG: EKG: [] (FRANCESCA HALL DO) Radiology/Procedures: Radiology/Procedures: [] (FRANCESCA HALL DO) Impression: . No renal or ureteral calculi. No evidence for obstructive uropathy. 2. Partial nephrectomy changes of left kidney. There is a partially exophytic 1.8 cm cystic lesion at the lower pole of the left kidney which is incompletely characterized on this study, unchanged from study in 2019. US- negative (HOOD OROZCO DO) Course & Med Decision Making: Course & Med Decision Making Pertinent Labs and Imaging studies reviewed. (See chart for details) [] Patient is a 59-year-old male who presents with chief complaint of acute on chronic right lower back pain that radiates to his right groin and right testicle. Initial vital signs unremarkable. Patient does state that he has had similar back pain exacerbations in the past however he is complaining of right groin right testicle pain. Given this CT imaging of the abdomen and pelvis will be obtained. Furthermore, testicular ultrasound will also be obtained. At this time labs and imaging are pending. I have signed out the patient's emergency department care to Dr. Orozco. We discussed the history, physical exam findings, completed and pending laboratory results and imaging studies. We have also discussed the current treatment plan and expected clinical course. Please refer to chart for the patient's remaining emergency department course, final disposition, and clinical impression(s). (FRANCESCA HALL DO) Course & Med Decision Making Assumed care at shift change. Disposition pending US/CT and re-evaluation. US and CT negative. After assuming care nursing states patient is requesting pain medications. Patient received fentanly and ketamine-- initial improvement but pain has returned. Patient was dosed with Morphine 4mg IV - with improvement. Patient will be discharged home on norco. Suspect acute exacerbation of chronic pain. (HOOD OROZCO DO) Dragon Disclaimer: Dragon Disclaimer: This electronic medical record was generated, in whole or in part, using a voice recognition dictation system. (FRANCESCA HALL DO) Departure Departure Impression: Primary Impression: Low back pain Disposition: HOME, SELF-CARE Condition: STABLE Referrals: FLAQUITO PARSON DO (PCP) Patient Instructions: Back Pain, Adult Scripts Hydrocodone/Apap 5-325 (NORCO 5-325 TABLET) 1 Each Tablet 1 TAB PO PRN Q6HRS PRN for PAIN, #14 TAB 0 Refills Prov: HOOD OROZCO DO 02/12/20 Justicifation of Admission Dx: Justifications for Admission: Justification of Admission Dx: N/A (FRANCESCA HALL DO) FRANCESCA HALL DO Feb 12, 2020 16:48 HOOD OROZCO DO Feb 12, 2020 19:39
[2020-02-12 17:19] LABS: CALCIUM 8.6 mg/dL (8.5-10.1); CREATININE 0.7 mg/dL (0.7-1.3); POTASSIUM 3.4 mmol/L (3.5-5.1)
[2020-02-12] MEDS ORDERED: NORMAL SALINE IV ONE (17:30)
[2020-02-12] MEDS ORDERED: LIDOCAINE (700MG/PATCH) PATCH. TD SCH (17:30)
[2020-02-12] MEDS ORDERED: KETAMINE HCL IV ONE (17:30)
[2020-02-12 17:52] LABS: BASO # 0.1 x10^3/uL (0.0-0.2); BASO % 1 % (0-3); EOS # 0.5 x10^3/uL (0.0-0.7); EOS % 6 % (0-3); HEMATOCRIT 44.5 % (39.0-53.0); HEMOGLOBIN 15.7 g/dL (13.0-17.5); LYMPH # 1.5 x10^3/uL (1.0-4.8); LYMPH % 15 % (24-48); MEAN CORPUSCULAR HEMOGLOBIN 32 pg (25-35); MEAN CORPUSCULAR HGB CONC 35 g/dL (31-37); MEAN CORPUSCULAR VOLUME 90 fL (79-100); MONO # 0.5 x10^3/uL (0.0-1.1); MONO % 5 % (0-9); NEUT # 7.2 x10^3/uL (1.8-7.7); NEUT % 74 % (31-73); PLATELET COUNT 181 x10^3/uL (140-400); RED BLOOD COUNT 4.96 x10^6/uL (4.30-5.70); RED CELL DISTRIBUTION WIDTH 13.6 % (11.5-14.5); WHITE BLOOD COUNT 9.7 x10^3/uL (4.0-11.0)
--- NOTE | 2020-02-12 18:51 | RAD ---
Exam: CT of abdomen and pelvis without contrast INDICATION: Back pain, right-sided TECHNIQUE: Sequential axial images through the abdomen and pelvis obtained without IV contrast. Sagittal and coronal reformatted images were reconstructed from the axial data and reviewed. Comparisons: 11/15/2019 FINDINGS: Heart size is normal. No pericardial effusion. Visualized lung bases are clear. No pleural effusion. Evaluation of solid organs is limited secondary to noncontrast technique. Liver, spleen, pancreas, gallbladder and adrenals are unremarkable. No perinephric inflammation or hydronephrosis. Partial nephrectomy changes noted at the mid left kidney. No renal or ureteral calculi are identified. Bladder is distended and appears thin-walled. Prostate is not enlarged. Large and small bowel are unremarkable. Appendix is normal. No free intra-abdominal air or fluid. No obstruction. Abdominal aorta has a normal course and caliber. Abdominal vasculature is patent. No enlarged abdominal lymph nodes are identified. No suspicious osseous lesions or acute fractures. IMPRESSION: 1. No renal or ureteral calculi. No evidence for obstructive uropathy. 2. Partial nephrectomy changes of left kidney. There is a partially exophytic 1.8 cm cystic lesion at the lower pole of the left kidney which is incompletely characterized on this study, unchanged from study in 2019. Exposure: One or more of the following in the visualized dose reduction techniques were utilized for this examination: 1. Automated exposure control 2. Adjustment of the MA and/or KV according to patient size 3. Use of iterative of reconstructive technique Electronically signed by: Autumn La MD (02/12/2020 6:48 PM) [id number]
[2020-02-12] MEDS ORDERED: MORPHINE SULFATE 4 MG/ML VIAL. IV ONE ×2 (19:00→20:15)
[2020-02-12 19:06] VITALS: BP 157/76
--- NOTE | 2020-02-12 19:31 | RAD ---
Examination: TESTICULAR/SCROTUM History: Reason: R testicle pain / Spl. Instructions: / History: Comparison/Correlation: None Findings: Scrotal ultrasound exam was performed. Right testicle measures 4.4 cm x 2.6 cm ovoid fracture. Left testicle measures 4 cm x 3.5 cm x 2.7 cm. Testicular echotexture is normal. Normal flow identified bilaterally. No hydrocele. Right epididymis measures up to 0.7 cm diameter. Left epididymis measures up to 0.5 cm diameter. Small epididymal complex spermatocele or cyst is present. Impression: No evidence of testicular torsion. No suspicious finding. Electronically signed by: Flakito Grey MD (02/12/2020 7:28 PM) [id number]
[2020-02-12] MEDS ORDERED: HYDR-3164 PO (19:39)
== END 2020-02-12 20:07 | disposition home or self-care (01) ==
LOC: ER 16:38
DX: G89.29 Other chronic pain (principal); M54.5 Low back pain; R20.2 Paresthesia of skin; K21.9 Gastro-esophageal reflux disease without esophagitis; E78.00 Pure hypercholesterolemia, unspecified; F17.200 Nicotine dependence, unspecified, uncomplicated; Z98.890 Other specified postprocedural states; Z87.442 Personal history of urinary calculi; Z85.528 Personal history of other malignant neoplasm of kidney
CPT/HCPCS: 36415; 74176; 76870; 80048; 85025; 96365; 96375; 96376; 99285; J1885; J2270; J3490; J7050; J7030